=== PATIENT | female | born 1945 | race Caucasian/White ===

== ENCOUNTER 2018-11-29 16:02 | Inpatient (IN) | payer MEDICARE ==
[~2018-11-29] VITALS: Ht 147.3 cm; Wt 58.8 kg
[2018-12-01 11:10] VITALS: BP 127/63
== END 2018-12-01 13:05 | disposition home or self-care (01) | DRG 247 ==
LOC: ED 18:03 → EDIP 18:28 → 5SO 18:42 → DCLOUNGE 12-01 12:33
PROVIDERS: ADMIT Internal Medicine; ATTEND Internal Medicine
PROC: 027034Z Dilation of Coronary Artery, One Artery with Drug-eluting Intraluminal Device, Percutaneous Approach (ICD-10-PCS; principal; 2018-11-30)
PROC: 4A023N7 Measurement of Cardiac Sampling and Pressure, Left Heart, Percutaneous Approach (ICD-10-PCS; 2018-11-30)
PROC: B2111ZZ Fluoroscopy of Multiple Coronary Arteries using Low Osmolar Contrast (ICD-10-PCS; 2018-11-30)
PROC: B2151ZZ Fluoroscopy of Left Heart using Low Osmolar Contrast (ICD-10-PCS; 2018-11-30)
DX: I21.4 Non-ST elevation (NSTEMI) myocardial infarction (principal); H35.30 Unspecified macular degeneration; G62.9 Polyneuropathy, unspecified; N95.1 Menopausal and female climacteric states; E78.5 Hyperlipidemia, unspecified; I10 Essential (primary) hypertension; Z79.02 Long term (current) use of antithrombotics/antiplatelets; Z79.82 Long term (current) use of aspirin; Z79.890 Hormone replacement therapy; Z79.899 Other long term (current) drug therapy; Z87.891 Personal history of nicotine dependence; Z88.2 Allergy status to sulfonamides
CPT/HCPCS: 36415; 80048; 80053; 80061; 83036; 83735; 84443; 84484; 85025; 85379; 85520; 93005; 93306; 93458; 99156; 99157; 99285; C1769; C1894; C9600; G0378; J0583; J1644; J2250; J3010; Q0162; C1725; C1874; C1887; J0360; J7030; Q9967